=== PATIENT | female | born 1985 | race Caucasian/White ===

== ENCOUNTER 2017-06-13 06:03 | Inpatient (IN) | payer BC ==
[2017-06-12 19:00] VITALS: BP 104/71; PULSE 108
[~2017-06-13] VITALS: Ht 167.6 cm; Wt 86.8 kg
[2017-06-13] VITALS (39 sets, daily range): BP systolic 82–137; BP diastolic 51–86; PULSE 69–117; TEMP 97.6–98.2
[~2017-06-13 06:03] MED LIST: BCP TD; IBU600 MG PO; IRON325 M2 PO; LEXAPRO20 MG; LEXAPRO20 MG PO; NECON 0.5/35 351 TAB PO; PAROXETIN10 MG PO; PAXIL 20MG20 MG PO; PERCOCET 325 MG1 TA2 PO; PRENATAL1 TA7 PO; WELLBUTRIN100 MG PO; ZOLOFT 50MG50 MG PO
[2017-06-13] MEDS ORDERED: ZOFRAN 4MG T4 MG/TAB PO (06:34)
[2017-06-13] MEDS ORDERED: PRILOSEC 20MG20 MG PO (06:35)
[2017-06-13] MEDS ORDERED: SLOW FE142 MG PO (06:36)
[2017-06-13] MEDS ORDERED: TRIAMCINOLONE A15 G3 TP (06:57)
[2017-06-13 08:21] LABS: BASO # 0.1 (0.0-0.2); BASO % 0.8 % (0.0-2.0); EOS # 0.1 (0.0-0.7); EOS % 0.6 % (0-4.0); GRAN # 5.2 (1.4-6.5); GRAN % 66.7 % (42.2-75.2); LYMPH % 24.8 % (20.0-51.0); MEAN CELL VOLUME 84 fl (80.0-100.0); MEAN CORPUSCULAR HGB CONC 33 g/dl (33.0-37.0); MEAN PLATELET VOLUME 10.6 fl (7.4-10.4); MONO # 0.5 (0.1-0.6); MONO % 6.5 % (1.7-9.3); PLATELET COUNT 189 K/mm3 (130-400); RED BLOOD COUNT 3.65 M/mm3 (4.10-5.30); REDCELL DISTRIBUTION WIDTH-CV 14.1 % (11.5-14.5)
[2017-06-13 08:22] LABS: HEMATOCRIT 30.7 % (37.0-47.0); MEAN CORPUSCULAR HEMOGLOBIN 27 pg (27.0-31.0)
[2017-06-14 00:28] VITALS: BP 96/69; PULSE 84; TEMP 97.8
[2017-06-14 06:29] LABS: BASO % 0.4 % (0.0-2.0); EOS # 0.1 (0.0-0.7); EOS % 0.5 % (0-4.0); GRAN # 7.1 (1.4-6.5); GRAN % 76.7 % (42.2-75.2); LYMPH # 1.5 (1.2-3.4); LYMPH % 16.2 % (20.0-51.0); MEAN CELL VOLUME 85 fl (80.0-100.0); MEAN CORPUSCULAR HGB CONC 32 g/dl (33.0-37.0); MONO # 0.5 (0.1-0.6); MONO % 5.8 % (1.7-9.3); PLATELET COUNT 168 K/mm3 (130-400); RED BLOOD COUNT 3.42 M/mm3 (4.10-5.30); REDCELL DISTRIBUTION WIDTH-CV 14.2 % (11.5-14.5)
[2017-06-14 06:37] LABS: HEMATOCRIT 29.1 % (37.0-47.0); HEMOGLOBIN 9.3 g/dl (12.5-16.0); MEAN CORPUSCULAR HEMOGLOBIN 27 pg (27.0-31.0)
[2017-06-14 09:42] VITALS: BP 104/62; PULSE 84; TEMP 98.2
[2017-06-14 16:40] VITALS: BP 84/68; PULSE 83; TEMP 97.7
[2017-06-14 21:00] VITALS: BP 108/75; PULSE 72; TEMP 97.2
[2017-06-14 23:30] VITALS: BP 110/78; PULSE 76; TEMP 98.3
[2017-06-15] MEDS ORDERED: IBU600 MG PO (08:51)
[2017-06-15 10:00] VITALS: BP 110/73; PULSE 80; TEMP 98.4
== END 2017-06-15 12:30 | disposition home or self-care (01) | DRG 775 ==
LOC: LDRO 06:03 → LDR 07:21 → OB 07:21
PROVIDERS: Obstetrics & Gynecology
PROC: 10E0XZZ Delivery of Products of Conception, External Approach (ICD-10-PCS; principal; 2017-06-13)
PROC: 0KQM0ZZ Repair Perineum Muscle, Open Approach (ICD-10-PCS; 2017-06-13)
DX: O99.02 Anemia complicating childbirth (principal); D64.9 Anemia, unspecified; O69.2XX0 Labor and delivery complicated by other cord entanglement, with compression, not applicable or unspecified; O70.1 Second degree perineal laceration during delivery; Z3A.38 38 weeks gestation of pregnancy; Z37.0 Single live birth
CPT/HCPCS: J2590; J2795; J7120